=== PATIENT | female | born 1970 | race Caucasian/White ===

== ENCOUNTER 2019-03-28 11:32 | Emergency (ER) | payer OTHER ==
[~2019-03-28] VITALS: Ht 165.1 cm; Wt 59.0 kg
--- NOTE | 2019-03-28 12:00 | NUR ---
BIB RA FROM HOME,BACK PAIN AFTER GETTING UP THIS MORNING,DENIES ANY TRAUMA. PT AAOX4, VSS. C/O LT FLANK PAIN 07/19. DENIES CP, SOB, DIZZINESS AT THIS TIME. AWAITING EVAL BY JOSIANE/LEIGH ANN. WILL CONT TO MONITOR.
[2019-03-28] MEDS ORDERED: ONDANSETRON HCL/PF 4 MG/2 ML VIAL ONE ×2 (12:20→13:30)
[2019-03-28] MEDS ORDERED: MORPHINE SULFATE INJ 4 MG/ML DISP.SYRIN ONE (12:21)
[2019-03-28 12:22] LABS: BASOPHILS # (AUTO) 0.1 /CMM (0.0-0.2); BASOPHILS % (AUTO) 0.8 % (0.0-2.0); HEMATOCRIT 41 % (33-45); HEMOGLOBIN 13.3 g/dL (11.5-14.8); LYMPHOCYTES # (AUTO) 0.8 /CMM (0.8-4.8); LYMPHOCYTES % (AUTO) 11.3 % (20.0-44.0); MEAN CORPUSCULAR HGB CONC 33 g/dl (31.0-36.0); MEAN CORPUSCULAR VOLUME 80 fL (82-100); MONOCYTES # (AUTO) 0.5 /CMM (0.1-1.30); MONOCYTES % (AUTO) 6.9 % (2.0-12.0); NEUTROPHILS # (AUTO) 5.8 /CMM (1.8-8.9); PLATELET COUNT (AUTO) 184 /CMM (150-450); RED BLOOD CELL COUNT(AUTO) 5.09 MIL/uL (4.0-5.2); WHITE BLOOD COUNT (AUTO) 7.2 K/uL (4.3-11.0)
[2019-03-28 12:28] LABS: CALCIUM, SERUM 9.5 mg/dL (8.5-10.1); CREATININE 1.1 mg/dL (0.6-1.3); POTASSIUM 3.1 mmol/L (3.5-5.1)
[2019-03-28] MEDS ORDERED: ONDANSETRON HCL/PF 4 MG/2 ML VIAL IV ONE (12:30)
[2019-03-28] MEDS ORDERED: ONDANSETRON HCL/PF 4 MG/2 ML VIAL IVP ONE (12:30)
[2019-03-28] MEDS ORDERED: HYDROMORPHONE 1 MG/1 ML DISP.SYRIN IV ONE (12:30)
[2019-03-28] MEDS ORDERED: IV NS 0.9% 1,000 ML BAG IV ONE ×2 (12:30→14:30)
[2019-03-28] MEDS ORDERED: MORPHINE SULFATE INJ 2 MG/ML DISP.SYRIN IV ONE (12:30)
[2019-03-28 12:34] LABS: ALBUMIN 4.1 g/dL (3.4-5.0); BILIRUBIN,DIRECT 0.1 mg/dL (0.0-0.2); BILIRUBIN,TOTAL 0.5 mg/dL (0.2-1.0); TOTAL PROTEIN, SERUM 7.8 g/dL (6.4-8.2)
--- NOTE | 2019-03-28 12:45 | NUR ---
MEDICATED FOR PAIN PER LEIGH ANN JUAN'S ORDER. PT FERNANDA WELL.
[2019-03-28] MEDS ORDERED: POTASSIUM CHLORIDE 20 MEQ TAB.PRT.SR PO ONE ×2 (13:30→14:27)
[2019-03-28] MEDS ORDERED: HYDROMORPHONE 1 MG/1 ML DISP.SYRIN ONE (13:30)
--- NOTE | 2019-03-28 13:38 | NUR ---
PT BACK FROM CT. MEDICATED FOR PAIN PER PA'S ORDER. PT FERNANDA WELL.
[2019-03-28] MEDS ORDERED: TAMSULOSIN 0.4 MG CAP.SR.24H PO ONE (14:00)
[2019-03-28 14:19] LABS: APPEARANCE,URINE Clear (CLEAR); BILIRUBIN,URINE Negative (NEGATIVE); BLOOD, URINE Moderate Ery/uL (NEGATIVE); COLOR,URINE Yellow (YELLOW); KETONES,URINE 15 (NEGATIVE); LEUKOCYTE ESTERASE ,URINE Negative (NEGATIVE); NITRITE, URINE Negative (NEGATIVE); PROTEIN,URINE Trace mg/dl (NEGATIVE); UGLUCOSE Negative (NEGATIVE); UROBILINOGEN,URINE 0.2 EU/dL (0.2)
[2019-03-28] MEDS ORDERED: KETOROLAC TROMETHAMINE 15 MG/ML VIAL ONE (14:27)
[2019-03-28] MEDS ORDERED: TAMSULOSIN 0.4 MG CAP.SR.24H ONE (14:27)
[2019-03-28] MEDS ORDERED: KETOROLAC TROMETHAMINE INJ 30 MG/ML VIAL IV ONE (14:30)
[2019-03-28 14:31] LABS: RBC,URINE TOO NUMEROUS TO COUN /HPF (0-2); SQUAMOUS EPITHELIAL CELL,UR Rare /HPF (None Seen)
[2019-03-28 14:32] LABS: BACTERIA,URINE Rare /HPF (None Seen); WBC,URINE 0-2 /HPF (0-3)
--- NOTE | 2019-03-28 17:48 | NUR ---
Patient discharged to home in stable condition. Written and verbal after care instructions given. Patient verbalizes understanding of instruction. IV removed. Catheter intact and site benign. Pressure and 4x4 applied to site. No bleeding noted.
[2019-03-28 17:50] VITALS: BP 118/67
== END 2019-03-28 17:51 | disposition home or self-care (01) ==
LOC: ER 11:34
DX: N13.2 Hydronephrosis with renal and ureteral calculous obstruction (principal); R11.2 Nausea with vomiting, unspecified; E87.6 Hypokalemia; Z60.2 Problems related to living alone
CPT/HCPCS: 36415; 74176; 80048; 80076; 81001; 84702; 84703; 85025; 87086; 96361; 96374; 96375; 96376; 99284; J1170; J1885; J2270; J2405 ×2; J7030 ×2; 81000-TC

== ENCOUNTER 2022-01-03 11:04 | Emergency (ER) | payer OTHER ==
[~2022-01-03] VITALS: Ht 165.1 cm; Wt 66.2 kg
--- NOTE | 2022-01-03 11:15 | NUR ---
BIB SELF C/O HEAVY VAGINAL BLEED SINCE YESTERDAY APPROXIMATELY 200CC USING CUPS. PATIENT IS ALERT, ORIENTED X4. VITALS CHECKED. PLACED COMFORTABLY IN BED. PATIENT S/P FIBROID REMOVAL 02/2021.
--- NOTE | 2022-01-03 11:40 | NUR ---
IV CANNULA G18 INSERTED ON RT AC. 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
[2022-01-03] MEDS ORDERED: ASPI81TA93 (11:48)
[2022-01-03 11:49] LABS: BASOPHILS % (AUTO) 0.5 % (0.0-2.0); EOSINOPHILS % (AUTO) 3.2 % (0.0-6.0); HEMATOCRIT 35 % (33-45); HEMOGLOBIN 11.3 g/dL (11.5-14.8); LYMPHOCYTES # (AUTO) 0.8 K/uL (0.8-4.8); LYMPHOCYTES % (AUTO) 12.4 % (20.0-44.0); MEAN CORPUSCULAR HGB CONC 32 g/dl (31.0-36.0); MEAN CORPUSCULAR VOLUME 77 fL (82-100); MONOCYTES # (AUTO) 0.5 K/uL (0.1-1.30); MONOCYTES % (AUTO) 7.4 % (2.0-12.0); NEUTROPHILS # (AUTO) 5.2 K/uL (1.8-8.9); NEUTROPHILS % (AUTO) 76.5 % (43.0-81.0); PLATELET COUNT (AUTO) 159 K/uL (150-450); RED BLOOD CELL COUNT(AUTO) 4.57 MIL/uL (4.0-5.2); WHITE BLOOD COUNT (AUTO) 6.8 K/uL (4.3-11.0)
[2022-01-03 12:00] LABS: CALCIUM, SERUM 8.6 mg/dL (8.5-10.1); CREATININE 0.8 mg/dL (0.6-1.3); POTASSIUM 3.9 mmol/L (3.5-5.1)
[2022-01-03 12:06] LABS: ALBUMIN 3.7 g/dL (3.4-5.0); BILIRUBIN,TOTAL 0.1 mg/dL (0.2-1.0)
--- NOTE | 2022-01-03 12:12 | NUR ---
PELVIC YAA DONE AT BEDSIDE
[2022-01-03] MEDS ORDERED: MEDR5TAB PO (12:54)
--- NOTE | 2022-01-03 13:06 | NUR ---
Patient discharged to home in stable condition. Written and verbal after care instructions given. Patient verbalizes understanding of instruction.
[2022-01-03 13:09] VITALS: BP 131/81
== END 2022-01-03 13:17 | disposition home or self-care (01) ==
LOC: ER 11:06
DX: D25.9 Leiomyoma of uterus, unspecified (principal); Z86.2 Personal history of diseases of the blood and blood-forming organs and certain disorders involving the immune mechanism; Z87.42 Personal history of other diseases of the female genital tract; Z88.6 Allergy status to analgesic agent; Z60.2 Problems related to living alone; Z79.82 Long term (current) use of aspirin
CPT/HCPCS: 36415; 76856-TC; 80053-TC; 85025-TC; 86850-TC

== ENCOUNTER 2022-04-09 08:45 | Emergency (ER) | payer OTHER ==
[~2022-04-09] VITALS: Ht 165.1 cm; Wt 63.5 kg
[~2022-04-09 08:45] MED LIST: ASPI81TA93; MEDR5TAB PO
--- NOTE | 2022-04-09 08:55 | NUR ---
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
--- NOTE | 2022-04-09 09:00 | NUR ---
DR. CARABALLO AT BED SIDE
[2022-04-09 09:10] VITALS: BP 120/79
[2022-04-09] MEDS ORDERED: CEPH500C2 PO (09:15)
[2022-04-09] MEDS ORDERED: MUPI22OI2 TP (09:15)
--- NOTE | 2022-04-09 09:25 | NUR ---
CLEAN SKIN WITH NS AND PATED TO DRY AND DRESSING APPLED
--- NOTE | 2022-04-09 09:30 | NUR ---
d/c instraction given to pt fully and verblized understood d/c home with rx and fallow up care
== END 2022-04-09 09:36 | disposition home or self-care (01) ==
LOC: ER 08:48
DX: L01.00 Impetigo, unspecified (principal); Z88.8 Allergy status to other drugs, medicaments and biological substances; Z60.2 Problems related to living alone; Z79.899 Other long term (current) drug therapy

== ENCOUNTER 2022-04-11 16:06 | Emergency (ER) | payer OTHER ==
[~2022-04-11] VITALS: Ht 167.6 cm; Wt 72.6 kg
[~2022-04-11 16:06] MED LIST changes: +CEPH500C2 PO; +MUPI22OI2 TP
[2022-04-11 17:21] VITALS: BP 109/67
--- NOTE | 2022-04-11 19:21 | NUR ---
LEFT WITHOUT BEING SEEN, WAS RECENTLY SEEN HERE 2DAYS AGO
== END 2022-04-11 19:22 | disposition left against medical advice (07) ==
LOC: ER 16:17
DX: Z53.21 Procedure and treatment not carried out due to patient leaving prior to being seen by health care provider (principal)

== ENCOUNTER 2023-03-29 16:36 | Emergency (ER) | payer OTHER ==
[~2023-03-29] VITALS: Ht 167.6 cm; Wt 59.0 kg
--- NOTE | 2023-03-29 16:40 | NUR ---
BIBS FOR PAIN IN NECK AND SHOULDERS FOR 1 WEEK. A/O X 3, ABLE TO MAKE NEEDS KNOWN, TOLERATING WELL ON ROOM AIR.
[2023-03-29 16:44] VITALS: BP 132/85; TEMP 98.2
[2023-03-29] MEDS ORDERED: CYCLOBENZAPRINE 10 MG TABLET ONE (17:28)
[2023-03-29] MEDS ORDERED: KETOROLAC TROMETHAMINE INJ 30 MG/ML VIAL ONE (17:28)
[2023-03-29] MEDS ORDERED: KETOROLAC TROMETHAMINE INJ 60 MG/2 ML VIAL IM ONE (17:30)
[2023-03-29] MEDS ORDERED: CYCLOBENZAPRINE 10 MG TABLET PO ONE (17:30)
[2023-03-29] MEDS ORDERED: CYCL5TAB PO (18:04)
== END 2023-03-29 18:13 | disposition home or self-care (01) ==
LOC: ER 16:38
DX: M54.2 Cervicalgia (principal); D64.9 Anemia, unspecified; Z79.899 Other long term (current) drug therapy; Z79.82 Long term (current) use of aspirin; Z60.2 Problems related to living alone; Z88.8 Allergy status to other drugs, medicaments and biological substances
CPT/HCPCS: 99283; 96372; 93005; J1885

== ENCOUNTER 2024-06-15 09:32 | Emergency (ER) | payer OTHER ==
[~2024-06-15] VITALS: Ht 167.6 cm; Wt 65.3 kg
[~2024-06-15 09:32] MED LIST changes: +CYCL5TAB PO
[2024-06-15] MEDS ORDERED: MECLIZINE HCL 25 MG TABLET ONE (10:17)
[2024-06-15 10:21] LABS: BASOPHILS % (AUTO) 0.6 % (0.0-2.0); EOSINOPHILS # (AUTO) 0.2 K/uL (0.0-0.7); EOSINOPHILS % (AUTO) 3.5 % (0.0-6.0); HEMATOCRIT 40 % (33-45); HEMOGLOBIN 12.8 g/dL (11.5-14.8); LYMPHOCYTES # (AUTO) 1.3 K/uL (0.8-4.8); MEAN CORPUSCULAR HEMOGLOBIN 24 PG (26.0-33.0); MEAN CORPUSCULAR HGB CONC 32 g/dl (31.0-36.0); MEAN CORPUSCULAR VOLUME 77 fL (82-100); MONOCYTES # (AUTO) 0.4 K/uL (0.1-1.30); MONOCYTES % (AUTO) 7.9 % (2.0-12.0); NEUTROPHILS # (AUTO) 2.7 K/uL (1.8-8.9); PLATELET COUNT (AUTO) 201 K/uL (150-450); RED BLOOD CELL COUNT(AUTO) 5.24 MIL/uL (4.0-5.2); RED CELL DISTRIBUTION WIDTH 15.9 % (11.5-15.0); WHITE BLOOD COUNT (AUTO) 4.5 K/uL (4.3-11.0)
[2024-06-15 10:33] LABS: CALCIUM, SERUM 9.3 mg/dL (8.5-10.1); CARBON DIOXIDE 24 mmol/L (21-32); CHLORIDE 106 mmol/L (98-107); CREATININE 0.7 mg/dL (0.6-1.3); GLUCOSE 93 mg/dL (74-106); POTASSIUM 3.8 mmol/L (3.5-5.1); SODIUM SERUM 140 mmol/L (136-145); UREA NITROGEN, BLOOD 16 mg/dL (7-18)
[2024-06-15] MEDS: IV NS 0.9% 1,000 ML BAG IV ONE (10:33)
[2024-06-15] MEDS: MECLIZINE HCL 25 MG TABLET PO ONE (10:34)
[2024-06-15 10:46] LABS: ALANINE AMINOTRANSFERASE 22 U/L (12-78); ALBUMIN 3.8 g/dL (3.4-5.0); ALKALINE PHOSPHATASE 84 U/L (46-116); ASPARTATE AMINOTRANSFERASE 20 U/L (15-37); BILIRUBIN,DIRECT 0.1 mg/dL (0.0-0.2); BILIRUBIN,TOTAL 0.4 mg/dL (0.2-1.0); NT-PRO BNP 34 pg/mL (0-125); TOTAL PROTEIN, SERUM 7.4 g/dL (6.4-8.2)
[2024-06-15] MEDS ORDERED: MECL-159 PO (11:01)
[2024-06-15 12:31] VITALS: BP 116/67; TEMP 97.9; O2SAT 100
== END 2024-06-15 12:38 | disposition home or self-care (01) ==
LOC: ER 09:37
DX: R42 Dizziness and giddiness (principal); R53.1 Weakness; Z86.2 Personal history of diseases of the blood and blood-forming organs and certain disorders involving the immune mechanism; Z88.6 Allergy status to analgesic agent; Z60.2 Problems related to living alone; Z20.822 Contact with and (suspected) exposure to COVID-19
CPT/HCPCS: 99285; 96360; 71045; 87426; 93005; 85025; 80048; 80076; 36415; 84484; 83880; 82962; J8597; J7030